=== PATIENT | female | born 1980 | race Caucasian/White ===

== ENCOUNTER 2018-05-23 07:00 | Inpatient (IN) | payer BC, SELFPAY ==
[2016-03-09 08:33] VITALS: BMI 38.4
[2018-05-23 07:22] VITALS: BMI 38.9
[2018-05-23 08:07] LABS: Hematocrit 37.7 % (37-47); Hemoglobin 12.4 g/dl (12.0-15.0); Mean Corp Hgb Conc 32.9 g/gl (32-36); Mean Corpuscular Hgb 30.7 pg (27.0-32.0); Mean Corpuscular Volume 93.3 fL (81-99); Mean Platelet Vol. 9.7 fl (6.2-12.0); Platelet Count 228 K/mm3 (150-450); RBC Distribution Width CV 14.5 % (11.6-14.6); RBC Distribution Width SD 49.1 fl (35.1-43.9); Red Blood Count 4.04 M/mm3 (4.2-5.4); White Blood Count 11.3 K/mm3 (4.4-11.0)
[2018-05-23 08:12] LABS: Scan Indicated on CBC? Y/N NO
[2018-05-23] MEDS: Lactated Ringers 1,000 ML 50 ML IV ×2 (08:17→17:00)
[2018-05-23] MEDS: Oxytocin 30 units/NS 500 ml 30 UNITS/500 ML IV.SOLN IV (08:20)
--- NOTE | 2018-05-23 08:27 | HP.PCM_ITS ---
History Date of Admission: 05/23/18 Final ANDREA: 05/27/18 Final ANDREA Source: LMP Gestational age: 39 Weeks and 3 Days History of this : This is a 38 year-old, 7 para 2041 who presents at 39 and 3/7 weeks gestation for elective induction of labor. She denies any vaginal bleeding or leaking of fluid. She has had no regular contractions. She had the first part of her care [place], then she transferred to our practice at approximately 32 weeks. This has been uncomplicated to date. Has a history of 2 previous spontaneous vaginal deliveries without complications. Allergies No Known Allergies Allergy (Verified 07/31/13 08:08) Home Medications: Home Medications Prenatabs FA 1 tab PO DAILY 07/31/13 Ibuprofen [Motrin] 800 mg PO TID PRN PRN #60 tablet 03/10/16 Smoking Status: Never smoker Alcohol: None Number of Fetus(es): 1 Heart Tracing: Normal baseline, moderate variability, spontaneous accelerations and no deep TOCO Analysis: rare Contractions History Past Pregnancies: Past Pregnancies Delivery Date Name GA/Weeks Outcome Route Weight Infant Gender Labor Length Anesthesia Delivery Location Provider FOB Expected Delivery Method: Spontaneous Vaginal Review of Systems Constitutional: Denies: Chills, Fever Eyes: Denies: Blurred vision Cardiovascular: Denies: Chest Pain Respiratory: Denies: Cough Gastrointestinal: Denies: Abdominal Pain Physical Exam General: Alert, Cooperative, No apparent distress Cardiovascular: Regular rate Lungs: Normal air movement Abdomen: Soft, Non Tender, Non-Distended, Gravid, Appropriate for Gestational Age Extremities:: Other - 1+edema 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 Risk benefits and alternatives to induction been discussed with patient, her questions were answered to her satisfaction she desires to proceed. We will proceed with Pitocin and artificial rupture of membranes induction. May have epidural, nitrous oxide or Nubain as needed for pain control. Estimated weight is less than 4500 g clinically and pelvis clinically adequate to expect vaginal delivery.
[2018-05-23] MEDS: fentaNYL-bupivacaine (epidural) 100 ML BAG EPIDURAL (15:45)
[2018-05-23] MEDS: Oxytocin 30 units/NS 500 ml 30 UNITS/500 ML IV.SOLN 334 UNITS IV (19:40)
--- NOTE | 2018-05-23 19:48 | PCM.OB.VAG ---
Vaginal Delivery Maternal Presentation: Elective Induction Method of Induction: Pitocin, Amniotomy Amniotic Membrane Rupture Type: Artificial Amniotic Fluid Description: Clear Final ANDREA: 05/27/18 Gestational age: 39 Weeks and 3 Days Date of Procedure: 05/23/18 Pre-Operative Diagnosis: labor Post-Operative Diagnosis: same Surgery/ Procedure Performed: Spontaneous Vaginal Delivery Type of Anesthesia: Epidural Description of Procedure: A vigorous male infant was delivered SHARON over an intact perineum. The remainder the infant was delivered with maternal pushing and gentle traction only in less than 15 seconds. The Pitocin infusion was initiated for active management of the third stage. The cord was clamped and cut after 1 minute. The infant was attended to by the waiting nursing staff. The placenta was delivered spontaneously and intact. The cervix and vagina were intact. Sponge and needle counts were correct. A vaginal sweep was completed by me. Presentation: SHARON Placental Delivery Description: Spontaneous Placenta Disposition: [facility] Cord Vessel Description: 3 Vessels Cord Entanglement: None Drain: - - none Estimated Blood Loss: 200 A gender: Male Episiotomy Description: None Laceration: None Medications given after delivery: IV Pitocin Complications: None
[2018-05-23] MEDS: Oxytocin 30 units/NS 500 ml 30 UNITS/500 ML IV.SOLN 167 UNITS IV (20:10)
[2018-05-23] MEDS: Naproxen 250 MG Tablet PO (23:03)
[2018-05-24 00:22] VITALS: BP 114/55; PULSE 88; RESP 18; TEMP 36.8
[2018-05-24 04:00] VITALS: BP 129/85; PULSE 86; RESP 18; TEMP 36.6
[2018-05-24] MEDS: Dibucaine 30 GM Tube 1 APPLIC TOPICAL (04:38)
[2018-05-24 08:35] VITALS: BP 128/81; PULSE 82; RESP 18; TEMP 36.4
[2018-05-24] MEDS: Naproxen 250 MG Tablet PO (08:47)
[2018-05-24] MEDS: Senna/Docusate Sodium 1 Tablet PO (08:48)
--- NOTE | 2018-05-24 09:36 | PCM.PN.OB ---
Subjective: Doing well per patient and nursing staff. Ambulating and taking PO without difficulty. Voiding and passing flatus. Denies headache, visual changes, chest pain, shortness of breath, increased vaginal bleeding or clots. Bottle feeding. Planning D/C home today. - Physical Exam General: Alert, Oriented x3 HEENT: Atraumatic, Normocephalic Neck: Supple Lungs: Clear to auscultation, Normal air movement, No rhonchi, No wheeze Cardiovascular: Regular rate, Regular Rhythm, No murmurs Abdomen: Bowel Sounds Present, Non Tender, - - fundus firm 2 below U Extremities: No edema Psych/Mental Status: Normal Affect, Appropriate Vital Signs Temp Pulse Resp BP 97.5 F L 82 18 128/81 H 05/24/18 08:35 05/24/18 08:35 05/24/18 08:35 05/24/18 08:35 Oxygen Delivery Method Room Air Weight: 249 lb Body Mass Index (BMI) 38.9 Laboratory Tests Past 24 Hrs 05/23/18 07:30 Blood Type A POSITIVE Antibody Screen NEGATIVE Medical Necessity - Tobacco Use Smoking Status: Never smoker Assessment/Plan A: PPD # 1 P: 1) Routine care. 2) Discharge instructions given 3) Follow up in 2 and 6 weeks .
--- NOTE | 2018-05-24 09:46 | DCINST_ITS ---
Discharge Activity: Return to Normal Activity, May Drive, May Shower, May Take a Tub Bath May resume sexual activity in: 4-6 weeks Weight Bearing Status: Full weight bearing Additional Activity Instructions:: Nothing in the vagina for 4-6 weeks. You may return to work/school in 6 weeks. Call your doctor if your incision/area has: Continuous Slow Oozing, Sudden Increased Bleeding, Increased Pain/ Swelling, Increased Redness, Foul Smelling Discharge Call your doctor if you observe: Fever of 101 or Higher, Inability to urinate, Inability to have a bowel movement, Using more than one pad per hour, Shortness of breath, Chest pain, Increased palpitations (irregular heartbeat), Calf discomfort, Uncontrolled pain Additional Instructions: If you experience any of the following, contact your healthcare provider. * Bleeding that soaks a pad every hour for 2 hours * Fever 100.4 or higher * Unrelieved incision or abdominal pain * Swelling, redness, discharge or bleeding from your incision or episiotomy site * Your incision begins to separate * Problems urinating (including inability to urinate or burning while urinating). * Visual changes * Severe headache * Flu-like symptoms * Pain or redness in one of both of your breasts * Pain, warmth, tenderness or swelling in your legs, especially the calf area * Frequent nausea and vomiting * Symptoms of depression or anxiety If you experience any of the following, call 911 or go to the nearest Emergency Room. * Chest pain * Problems breathing * Seizure activity * Partial or complete paralysis of a body part, slurred speech, weakness or drooping of the face, or a sudden inability to walk or hold your balance Allergies/Adverse Reactions: Allergies No Known Allergies Allergy (Verified 07/31/13 08:08) Medications to take at Discharge Prenatabs FA 1 tab PO DAILY 07/31/13 Ibuprofen [Motrin] 800 mg PO TID PRN PRN #60 tablet 03/10/16 Please Follow Up With: Carol Lopez MD When: Call to make an appointment with your doctor in 2 weeks and 6 weeks. Primary Care Physician: Care Physician,No Primary [Primary Care Provider] - Test Results: Test results from this visit will be discussed in further detail at your follow- up appointment, if applicable.
[2018-05-24 12:28] VITALS: BP 123/59; PULSE 83; RESP 18; TEMP 36.5
[2018-05-24] MEDS: Acetaminophen 500 MG Tablet 1000 MG PO (14:34)
[2018-05-24 16:45] VITALS: BP 114/73; PULSE 75; RESP 16; TEMP 36.3
[2018-05-24 19:40] VITALS: BP 113/71; PULSE 82; RESP 17; TEMP 36.8
--- NOTE | 2018-05-28 19:17 | NURSING ---
Follow up phone call complete and patient denies needs at this time states she is doing very well and was very happy with her care
== END 2018-05-24 20:45 | disposition home or self-care (01) | DRG 807 ==
PROVIDERS: Admitting Provider Obstetrics & Gynecology; Referring Provider Obstetrics & Gynecology; Visit Provider Obstetrics & Gynecology
DX: O80 Encounter for full-term uncomplicated delivery (principal); Z37.0 Single live birth; Z3A.39 39 weeks gestation of pregnancy
CPT/HCPCS: 59025; 59050; 85027; 86850; 86900; 99218; J7120; G0378